=== PATIENT | male | born 1940 | race Caucasian/White ===

== ENCOUNTER → 2023-12-11 | Outpatient (CLI) | payer OTHER, SELFPAY ==
--- NOTE | 2023-12-11 | PROSBIL_PTH ---
PATHOLOGY RESULTS PATIENT: ANASTACIO ENGLAND LOC: [facility] U#:[id number] AGE/SX: 83/M ROOM: RE12/11/[address]: Dr. Drake Marvin MD : [id number] BED: DIS: 12/11/2023 SPEC #: [id number] RECD: 12/12/23 08:14 STATUS: JOSIANE NATA #: [id number] SUPRIYA: 12/11/23 00:[address]: Drake Marvin DEPT: SURGICAL PATHOLOGY RECD BY: Stefani De Santiago ENTERED: 12/12/23 08:15 SP TYPE: PROST BX Tissues: PROSTATE RIGHT PROSTATE RIGHT PROSTATE RIGHT PROSTATE LEFT PROSTATE LEFT PROSTATE LEFT Procedures: PROSTATE BX HEADER OPERATION: Prostate biopsy PRE-OP DIAGNOSIS: Elevated PSA TISSUE SUBMITTED: A - Right apex, B - Right mid, C - Right base, D - Left apex, E - Left mid, F - Left base MICROSCOPIC DIAGNOSIS A. Right prostate, apex, core biopsy: Prostatic adenocarcinoma. Cheikh grade: 3+5=8 Number of cores involved: 1/1 Proportion of tissue involved: almost 100% Perineural invasion: Not identified. Greatest tumor length: 0.9 cm Focal chronic inflammation. Focal high-grade prostatic intraepithelial neoplasia (HGPIN). See comment. B. Right prostate, mid, core biopsy: Prostatic adenocarcinoma. Cheikh grade: 4+3=7 Number of cores involved: 1/1 Proportion of tissue involved: >95% Perineural invasion: Not identified. Greatest tumor length: 0.9 cm Focal chronic inflammation. C. Right prostate, base, core biopsy: Prostatic adenocarcinoma. Cheikh grade: 4+3=7 Number of cores involved: 1/1 Proportion of tissue involved: >95% Perineural invasion: Not identified. Greatest tumor length: 1.2 cm Focal chronic inflammation. D. Left prostate, apex, core biopsy: Prostatic adenocarcinoma. Cheikh grade: 3+4=7 Number of cores involved: 1/1 Proportion of tissue involved: ~50% Perineural invasion: Not identified. Greatest tumor length: 0.5 cm Chronic inflammation and atrophy. E. Left prostate, mid, core biopsy: Prostatic adenocarcinoma. Robinson grade: 3+3=6 Number of cores involved: 1/1 Proportion of tissue involved: >95% Perineural invasion: Not identified. Greatest tumor length: 0.7 cm F. Left prostate, base, core biopsy: Prostatic adenocarcinoma. Robinson grade: 3+3=6 Number of cores involved: 1/1 Proportion of tissue involved: >95% Perineural invasion: Not identified. Greatest tumor length: 1.0 cm SJ:gage 12/13/2023 COMMENT A. Focal area also shows squamous epithelium. MICROSCOPIC DESCRIPTION Slides are reviewed. GROSS DESCRIPTION A - Received is one container designated prostate, right apex. The specimen consists of one elongated fragment of light bermudez-white soft tissue measuring 1.2 cm in length and 0.1 cm in diameter. The specimen is totally submitted in one cassette. B - Received is one container designated prostate, right mid. The specimen consists of one elongated fragment of light bermudez-white soft tissue measuring 1.5 cm in length and 0.1 cm in diameter. The specimen is totally submitted in one cassette. C - Received is one container designated prostate, right base. The specimen consists of one elongated fragment of light bermudez-white soft tissue measuring 1.5 cm in length and 0.1 cm in diameter. The specimen is totally submitted in one cassette. D - Received is one container designated prostate, left apex. The specimen consists of one elongated fragment of light bermudez-white soft tissue measuring 1.2 cm in length and 0.1 cm in diameter. The specimen is totally submitted in one cassette. E - Received is one container designated prostate, left mid. The specimen consists of one elongated fragment of light bermudez-white soft tissue measuring 1.1 cm in length and 0.1 cm in diameter. The specimen is totally submitted in one cassette. F - Received is one container designated prostate, left base. The specimen consists of one elongated fragment of light bermudez-white soft tissue measuring 1.4 cm in length and 0.1 cm in diameter. The specimen is totally submitted in one cassette. / JAKE:rg 12/12/2023 TC:0 CPT: G0146
== END | disposition home or self-care (01) ==
LOC: LABSPEC 16:52
PROVIDERS: Referring Provider Urology; Visit Provider Urology
DX: R97.20 Elevated prostate specific antigen [PSA] (principal)
CPT/HCPCS: 88305; G0416

== ENCOUNTER → 2023-12-25 | Outpatient (CLI) | payer SELFPAY, OTHER ==
--- NOTE | 2023-12-25 08:35 | NM_ITS ---
CLINICAL: 83-year-old male with history of primary prostate carcinoma. WHOLE BODY 99m Tc MDP RADIONUCLIDE BONE SCINTIGRAPHY COMPARISON: None available FINDINGS: Following the intravenous administration of 27.0 mCi of 99m Tc MDP, whole body bone images reveal: 1. Increased radiotracer uptake is identified in the acromioclavicular and sternoclavicular compartments of both shoulders, the left elbow, the dorsal medial compartments of the ankles bilaterally, multifocally apparent within the knee articulations bilaterally. 2. The remaining skeletal structures are scintigraphically unremarkable with normal-appearing renal images and urinary bladder activity identified. NM/Bone Scan Whole Body IMPRESSION: 1. The increase in radiopharmaceutical defined in the bilateral shoulders, left elbow, bilateral ankles and knee articulations is commensurate with degenerative arthrosis. 2. Overall there 1 is no definitive scintigraphic evidence of distant metastatic disease on the current examination. Electronically Signed: Ghassan Woods DO at 23:52 EST ,
--- OUTSIDE RECORDS SUMMARY | 2023-12-25 08:58 | XMS RPT_ITS | CCD ---
Author Name Unknown Address [address] [place] [address] Organization [facility] Care Team Providers Care Counter Person Name Role Phone REJI RIZO, SONALI Avery Unavailable BUCKRISSA BHAVDHRUV Unavailable Unavaila ble BERLIN Unavailable Unavailable Shavonne Draek Unavailable Unavailable PARAM RIZO, DANTE Jenkins Unavailable [phone] A RIZO, CUONG Street Unavailable Gabrielle CAGLE MD Unavailable VIVIENNE MENDOZA MD Unavailable Maribel VIRGEN MD Unavailable EMBER RIZO, VANDANA Sawyer Unavailable [phone] Kandy DANIEL, Gabrielle Unavailable Unavailable Ceasar RN, Neeru Unavailable Unavaila michelle Pickard RN, Ladi Unavailable Unavailable Barbie Palmer Unavailable Unavailable RANDY RN, FRANCK Unavailable Unavailable ÁNGEL DIAZ, AGNES Stovall Unavailable [phone] Unavailable Unavailable Gabrielle CAGLE Attending Unavailable Gabrielle CAGLE Primary Care Unavailable Gabrielle CAGLE Admitting Unavailable Gabrielle CAGLE Attending Unavailable Gabrielle CAGLE Primary Care Unavailable Gabrielle CAGLE Admitting Unavailable Medications Current Medications Medication Drug Class(es) Dates Sig (Normalized) Sig (Original) Richi Bray 500 mg capsule (oral) (8 sources) take 1 capsule by [facility] once daily Richi Bray 500 mg capsule (oral) ; 1 daily (500 mg) Comments: OTC Completed/Discontinued Medications Medication Drug Class(es) Dates Sig (Normalized) Sig (Original) acetaminophen 300 mg / codeine phosphate 30 mg oral tablet (8 sources) Opioid Agonist Start: 12-13-2015 End: 12-18-2015 take 1 tablet by mouth every four hours as needed for pain ACETAMINOPHEN-CODEI NE #3, 300-30MG (Oral Tablet) ; 1 (one) Tablet every 4 hours prn pain for 5 days Quantity: 15 {Tablet} Refills: 0 Ordered: 13-Dec-2015 MD Gabrielle CAGLE Start: 13-Dec-2015 End: 18-Dec-2015 Status: Inactive Comments: Do not exceed 3000 mg acetaminophen in all forms in 24 hours. Problems Active Problems Problem Classification Problem Date Documented Da te Episodic/Chronic Administrative/social admission (20 sources) Patient encounter status; Translations: [Counseling, unspecified] 01-05-2021 Episodic Anxiety disorders (16 sources) Anxiety; Translations: [Anxiety disorder, unspecified] 04-24-2022 Chronic Chronic kidney disease (16 sources) Chronic kidney disease stage 3B ; Translations: [Chronic kidney disease, Stage III (moderate)] 11-06-2023 Chronic Past or Other Problems Problem Classification Problem Date Documented Da te Episodic/Chronic Pneumonia (except that caused by tuberculosis or sexually transmitted disease) (8 sources) Pneumonia (except that caused by tuberculosis or sexually transmitted disease) 06-12-2012 Unclassified (8 sources) Urinary frequency - The onset of the urinary frequency has been sudden and has been occurring for 1 month. The course has been increasing. The symptoms have been associated with dysuria, nocturia and urinary urgency, while the symptoms have not been associated with flank pain, incontinence or suprapubic pain. 08-20-2023 Unclassified (4 sources) Follow-up after ER visit - The diagnosis of injury to face and constipation. The patient reports feeling feels well with minor complaints (rib pain). The ER visit was at [facility]. Date:04-17-22 and 04-22-22. 04-24-2022 Unclassified (4 sources) [ADDITIONAL REASON] Transition into care - The patient is transitioning into care from an emergency room ([facility]) and a summary of care was reviewed. Note for Transition into care : has cough and left rib pain. Headache at times. Sleeping in chair and has some edema in both ankles. 04-24-2022 Unclassified (2 sources) Insomnia - The last clinic visit was month(s) ago. Note for Insomnia : needs refill on trazodone. 02-22-2021 Unclassified (5 sources) [ADDITIONAL REASON] Benign Prostatic Hyperplasia - The last clinic visit was 1 month(s) ago. Symptoms include nocturia. Note for Benign prostatic hyperplasia : does not take Flomax regularly. Only gets up 2-3 times at night. 02-22-2021 Unclassified (5 sources) [ADDITIONAL REASON] Constipation - The course has been decreasing. Note for Constipation : constipation is much better. Using colacde and miralax as needed. 02-22-2021 Unclassified (8 sources) !Patient notification of lab results - EMILY Hua. The test(s) that you had done were/was a PSA (blood test for prostate cancer). Your tests were abnormal You should call our office to schedule a referral. Please follow up as scheduled. Note for !Patient notification of lab results : Since you are already taking 2 different things for your prostate and still having symptoms, I would suggest having you see a urologist. The prostate numbers were elevated and your symptoms can definitely be better. Let me know if you would like to be referred. There are urologists in [place], [place], and [place]. People get into them pretty quickly- most of my patients have liked the ones in [place] the best. Thanks, Anastacio and I hope the constipation has gotten better as well! 01-06-2021 Unclassified (8 sources) Constipation - Note for Constipation : See here in office 12/27/2020. Has been taking Miralax and Colace. Is eating Prunes and still is not passing much stool. Here for advice before leaving for [place] 01-05-2021 Unclassified (8 sources) Constipation - The onset of the constipation has been acute and has been occurring for weeks. Note for Constipation : had knee surgery in Sep and bowels worked well after that, but lately not working well. 12-27-2020 Unclassified (8 sources) !Patient notification of lab results - Dr. Cagle. The test(s) that you had done were/was blood work (Your kidney function was improved on today's labs. Please be sure you are drinking enough water every day). You should call our office if you have any questions. 10-26-2020 Unclassified (5 sources) [ADDITIONAL REASON] Insomnia - The last clinic visit was 2 month(s) ago. Symptoms include difficulty falling asleep. Onset was 3 week(s) ago. The symptoms occur nightly. Note for Insomnia : Had Left Knee replaced 3 weeks ago. Had to use the Bathroom Frequently and since then has had trouble falling asleep. 10-26-2020 Unclassified (8 sources) !Patient notification of lab results - Dr. Cagle. The test(s) that you had done were/was blood work (The white blood cell count was slightly low. These are cells that help fight infections. They were not so low that I am concerned that you will have a problem with infection, but the count should be repeated in 3 months to be certain that the count is stable.Your creatinine was slightly elevated which indicates that your kidney function isn't as good as in the past. I would like to have you see the kidney specialist before you proceed with your surgery. Please call our office to arrange this.). You should call our office if you have any questions. 08-25-2020 Unclassified (8 sources) Knee pain - The knee pain has been occurring for 1 year. The knee pain involves both knees. The knee pain is described as being located in the entire knee (above and below. Left is worse). The symptoms have been associated with painful ROM and decreased ROM. Note for Knee pain : Still working 3 days per week at [employer]. Here for exam. 12-03-2019 Unclassified (3 sources) Nocturia - Symptoms include increased nighttime voiding. Onset was month(s) ago. 06-27-2019 Unclassified (3 sources) [ADDITIONAL REASON] Leg pain - The onset of the leg pain has been acute and has been occurring in a persistent pattern for 2 days. The leg pain involves the left leg (lower). Note for Leg pain : had pain in right great toe area couple weeks ago. 06-27-2019 Unclassified (8 sources) !Patient notification of lab results - Dr. Mendoza. The test(s) that you had done were/was an iron level, an A1C (three month sugar average), a CBC (checks for anemia and infection), a CMP (kidneys, liver, nutrition, sugar), a lipid panel (cholesterol and triglycerides) and a TSH (thyroid). The results of your testing were normal (except for mildly elevated cholesterol) . You should call our office to schedule an appointment for additional testing (recommend an echocardiogram to check the strength of your heart). Please note that we have included copies of your results. 02-09-2019 Unclassified (8 sources) cough - The cough has been occurring for 2 days. The symptoms have been associated with headache and sore throat, while the symptoms have not been associated with fever or runny nose. Note for cough : Cough is non productive, also c/o aching. Here for exam. 11-25-2017 Unclassified (8 sources) Suture removal - The sutures were placed here. The date the sutures were placed was 12/13/15. The suture location is Left hand, 5th finger. Note for Suture removal : Here for exam. 12-28-2015 Unclassified (8 sources) LACERATION - Note for Laceration : L small finger. Pinched between sawzall and the base plate of the tool. Happened today. 12-13-2015 Unclassified (8 sources) sore throat - The onset of the sore throat has been acute and has been occurring in a persistent pattern for 5 days. The symptoms have been associated with cough and runny nose. 06-29-2015 Unclassified (8 sources) Anxiety - The anxiety has been occurring for years. Note for Anxiety : would like refill on hydroxyzine 25mg that he takes occasionally for anxiety. 07-26-2012 Unclassified (8 sources) cough - The cough has been occurring for 3 weeks. The cough is characterized as productive of purulent sputum. The symptoms have been associated with anorexia, chest pain, dyspnea, hoarseness, runny nose (yellow), sore throat and weight loss. 05-29-2012 Unclassified (4 sources) Transition into care - The patient is transitioning into care from an emergency room ([facility]) and a summary of care was reviewed. Note for Transition into care : has cough and left rib pain. Headache at times. Sleeping in chair and has some edema in both ankles. 04-24-2022 Unclassified (4 sources) [ADDITIONAL REASON] Follow-up after ER visit - The diagnosis of injury to face and constipation. The patient reports feeling feels well with minor complaints (rib pain). The ER visit was at [facility]. Date:04-17-22 and 04-22-22. 04-24-2022 Unclassified (3 sources) Benign Prostatic Hyperplasia - The last clinic visit was 1 month(s) ago. Symptoms include nocturia. Note for Benign prostatic hyperplasia : does not take Flomax regularly. Only gets up 2-3 times at night. 02-22-2021 Unclassified (6 sources) [ADDITIONAL REASON] Insomnia - The last clinic visit was month(s) ago. Note for Insomnia : needs refill on trazodone. 02-22-2021 Unclassified (3 sources) Constipation - The course has been decreasing. Note for Constipation : constipation is much better. Using colacde and miralax as needed. 02-22-2021 Unclassified (5 sources) Leg pain - The onset of the leg pain has been acute and has been occurring in a persistent pattern for 2 days. The leg pain involves the left leg (lower). Note for Leg pain : had pain in right great toe area couple weeks ago. 06-27-2019 Unclassified (5 sources) [ADDITIONAL REASON] Nocturia - Symptoms include increased nighttime voiding. Onset was month(s) ago. 06-27-2019 Unclassified (3 sources) Insomnia - The last clinic visit was 2 month(s) ago. Symptoms include difficulty falling asleep. Onset was 3 week(s) ago. The symptoms occur nightly. Note for Insomnia : Had Left Knee replaced 3 weeks ago. Had to use the Bathroom Frequently and since then has had trouble falling asleep. 10-26-2020 Viral infection (8 sources) Disease caused by 2019-nCoV 10-26-2020 Results Test Name Value Interpretation Reference Range Facil ity Vital Signs Date Time Vital Sign Value Performing Clinician Faci lity 11-06-2023 15:38-0500 Body height 172.72 cm Neeru Mcdonough RN [facility], [employer] [facility]. 11-06-2023 15:38-0500 Body mass index (BMI) [Ratio] 31.53 kg/m2 Neeru Mcdonough RN [facility] 11-06-2023 15:38-0500 Body surface area Derived from formula 2.08 m2 Neeru [facility]cd[facility].; [facility]. 11-06-2023 15:38-0500 Body weight 94.07 kg Neeru [facility]cdonough RN [facility].; [facility] 11-06-2023 15:38-0500 Diastolic blood pressure 82 mm[Hg] Neeru Mcdonough RN [facility].; [facility], [facility]. Encounters Encounter Date Encounter Type Care Provider Facility Start: 11-29-2023 End: 11-29-2023 Historical Summary SONALI MENDOZA MD Work Phone: [facility], [employer]. Start: 11-20-2023 End: 11-20-2023 ambulatory [facility] Start: 11-07-2023 End: 11-07-2023 ambulatory [facility] Start: 11-06-2023 End: 11-06-2023 Office outpatient visit 15 minutes SONALI MENDOZA MD Work Phone: [facility] Start: 08-20-2023 End: 08-20-2023 Office outpatient visit 10 minutes SONALI MENDOZA MD Work Phone: [facility] Start: 04-24-2022 End: 04-24-2022 Office outpatient visit 10 minutes SONALI MENDOZA MD Work Phone: [facility] Start: 02-22-2021 End: 02-22-2021 Office outpatient visit 15 minutes SONALI MENDOZA MD Work Phone: [facility]. Start: 01-06-2021 End: 01-06-2021 Follow-up encounter SONALI MENDOZA MD [facility]. Start: 01-05-2021 End: 01-05-2021 Office outpatient visit 10 minutes SONALI MENDOZA MD Work Phone: [employer] Start: 12-27-2020 End: 12-27-2020 Office outpatient visit 10 minutes SONALI MENDOZA MD Work Phone: [employer] [facility] [employer] Start: 10-26-2020 End: 10-26-2020 Results Review SONALI MENDOZA MD Work Phone: [facility] Start: 10-26-2020 End: 10-26-2020 Office outpatient visit 15 minutes SONALI MENDOZA MD Work Phone: [employer] [facility] [employer] Start: 08-25-2020 End: 08-25-2020 Results Review SONALI MENDOZA MD Work Phone: [email or web address] [employer] Start: 08-24-2020 End: 08-24-2020 Office outpatient visit 15 minutes SONALI MENDOZA MD Work Phone: [employer] [facility] [employer] Start: 08-24-2020 End: 08-24-2020 Preprocedural examination done SONALI MENDOZA MD Work Phone: [email or web address]; [employer] Start: 07-06-2020 End: 07-06-2020 Historical Summary SONALI MENDOZA MD Work Phone: [email or web address] [employer] Start: 12-03-2019 End: 12-03-2019 Office outpatient visit 15 minutes SONALI MENDOZA MD Work Phone: [employer] [facility] [employer] Start: 06-27-2019 End: 06-27-2019 Office outpatient visit 15 minutes SONALI MENDOZA MD Work Phone: [employer] [facility] [employer] Start: 06-27-2019 End: 06-27-2019 Physical examination SONALI MENDOZA MD Work Phone: [employer]; [employer] Start: 02-09-2019 End: 02-09-2019 Patient encounter procedure SONALI MENDOZA MD Work Phone: [employer] [email or web address]. Start: 02-08-2019 End: 02-08-2019 Lab Only SONALI MENDOZA MD Work Phone: [email or web address] [employer] Start: 02-08-2019 End: 02-08-2019 Office outpatient visit 15 minutes SONALI MENDOZA MD Work Phone: [employer] [facility] [employer] Start: 11-20-2017 End: 11-25-2017 Office outpatient visit 15 minutes SONALI MENDOZA MD Work Phone: [employer] Start: 03-30-2017 End: 03-30-2017 Office outpatient visit 10 minutes SONALI MENDOZA MD Work Phone: [employer] Start: 08-23-2016 End: 08-23-2016 Historical Summary SONALI MENDOZA MD Work Phone: [employer] [facility] [employer] Start: 08-15-2016 End: 08-16-2016 Office outpatient visit 15 minutes SONALI MENDOZA MD Work Phone: [employer] Start: 07-27-2016 End: 07-27-2016 Historical Summary SONALI MENDOZA MD Work Phone: [employer] Start: 12-28-2015 End: 12-28-2015 Admission to same day surgery center SONALI MENDOZA MD Work Phone: [employer]. Start: 12-13-2015 End: 12-13-2015 Medication Refill/Order SONALI MENDOZA MD Work Phone: [employer] [email or web address]. Start: 12-13-2015 End: 12-13-2015 Admission to same day surgery center SONALI MENDOZA MD Work Phone: [employer] Start: 06-29-2015 End: 06-29-2015 Office outpatient visit 15 minutes SONALI MENDOZA MD Work Phone: [employer] Start: 03-25-2013 End: 03-25-2013 Historical Summary SONALI MENDOZA MD Work Phone: [employer] Start: 07-26-2012 End: 07-26-2012 Patient encounter procedure SONALI MENDOZA MD Work Phone: [employer] Start: 06-12-2012 End: 06-12-2012 Patient encounter procedure SONALI MENDOZA MD Work Phone: [employer] Start: 05-29-2012 End: 05-29-2012 Patient encounter procedure SONALI MENDOZA MD Work Phone: [employer] Start: 04-05-2012 End: 04-05-2012 Historical Summary SONALI MENDOZA MD Work Phone: [address] Start: 12-13-2010 End: 12-13-2010 Historical Summary SONALI MENDOZA MD Work Phone: [address] Procedures Date Procedure Procedure Detail Performing Clinician Start: 11-08-2023 PSA screening ELSA ROQUE Plan of Treatment Date Care Activity Detail Author Start: 11-06-2023 Comprehensive metabolic panel CMP - COMPREHENSIVE METABOLIC PANEL (10076) Start: 06-Nov-2023 16:43 Request [employer]. Start: 11-06-2023 Blood count complete auto&auto difrntl wbc CBC, PLATELETS & AUT DIFF (35926) Start: 06-Nov-2023 16:43 Request [employer] Start: 11-06-2023 Assay of prostate specific antigen total PSA (PROSTATE SPECIFIC ANTIGEN) (60697) Start: 06-Nov-2023 16:43 Request [employer] [facility] [employer] Start: 11-06-2023 Culture bacterial quanttative colony count urine URINE MELISSA CULTURE-LEONIDAS COL COUNT ([id number]) Start: 06-Nov-2023 16:42 Request [employer] [facility] [employer] Start: 11-06-2023 Culture bct isol&prsmptv id isolate ea urine URINE MELISSA CULTURE-ID ([id number]) Start: 06-Nov-2023 16:42 Request [employer] [facility] [employer] Start: 11-06-2023 Us pelvic nonobstetric image dcmtn limited/f/u US BLADDER FOR RESIDUAL ([id number]) Start: 06-Nov-2023 Intent [employer] [facility] [employer], [employer]. Start: 11-06-2023 Us retroperitoneal real time w/image complete US KIDNEY, COMP (64606) : bilateral with ureters Start: 06-Nov-2023 Intent [employer] [facility] [employer], [employer]. Start: 02-22-2021 Patient Education Labyrinthitis Indication: BPPV (benign paroxysmal positional vertigo), bilateral Start: 22-Feb-2021 Instruction Type: Patient Education [employer] [facility] [employer]. Start: 02-08-2019 Patient Education [employer] [facility] [employer]. Start: 12-13-2015 Finger splint, static FINGER SPLINT, STATIC (Q4049) Start: 13-Dec-2015 Intent [employer] [facility] [employer], [employer]. Start: 12-13-2015 Simple repair scalp/neck/ax/genit/trunk 2.5cm/< NON FACE UP TO 2.5 CM TOTAL ([id number]) Start: 13-Dec-2015 Intent [employer] [facility] [employer], [employer]. Start: 06-29-2015 Patient Education Pneumonia *: bacterial pneumonia Indication: Pneumonia of left lower lobe due to infectious organism Start: 29-Jun-2015 Instruction Type: Patient Education [employer]; [facility] [employer]. Start: 06-29-2015 [employer] streptococcus group a RAPID STREP IN OFFICE ([id number]) Start: 29-Jun-2015 11:15 Request [employer] [facility] [employer] [facility]. Start: 07-26-2012 Patient Education ANXIETY Indication: ANXIETY/NERVOUSNESS (Renamed from Jittery) Start: 26-Jul-2012 Instruction Type: Patient Education [employer] [facility] [employer]. Work Phone: Start: 05-29-2012 Patient Education BRONCHITIS - PNEUMONIA INSTRUCTIONS Indication: PNEUMONIA (486.) (Renamed from PNA (pneumonia)) Start: 29-May-2012 Instruction Type: Patient Education [facility] [employer] [facility] [employer]. Immunizations Immunization Date Immunization Notes Care Provider Kimberly tatum 12-13-2015 *IMMUNIZATION ADMIN ([id number]) SONALI MENDOZA MD Work Phone: [facility] [employer]; [facility] [employer] 12-13-2015 tetanus toxoid, redu chandrakant diphtheria toxoid, and acellular pertussis vaccine, adsorbed SONALI MENDOZA MD Work Phone: [facility] [employer]; [facility] [employer] [facility] Payers Date Payer Category Payer Unknown [id number] Unknown Unknown 37 Social History Date Type Detail Facility Alcohol Use: Alcohol Use: ; N o Alcohol Use. [employer]; [facility] [employer] [facility] [employer] Current Work/Study Status Current Work/St udy Status [facility] [employer]; [facility] [employer] [facility] Marital status: Marital status: ; . [email or web address]; [facility] [employer] [facility] [employer] Tobacco use: Tobacco use: ; F ormer smoker. [facility].; [facility]. [facility]; [facility] Work Phone: Never smoked tobacco [facility]; [facility]. Work Phone: [facility]; [facility]. Work Phone: Ex-smoker [facility]; [facility] [employer] [facility] [employer]. Work Phone: [facility]; [facility]. Work Phone: Summary Purpose Family History Daughter (s) Status:Active Comments:2. Father Status:Active Comments: d. age 59 [place] Mother Status:Active Comments: d. age 77 DM2 Sister (s) Status:Active Comments:4. all 1 stroke, 1 CKD Son (s) Status:Active Comments:3. age 71 , colon CA (2017) 5 children Status:Active Daughter (s) Status:Active Comments:2. Father Status:Active Comments: d. age 59 [place] Mother Status:Active Comments: d. age 77 DM2 Sister (s) Status:Active Comments:4. all 1 stroke, 1 CKD Son (s) Status:Active Comments:3. age 71 , colon CA (2017) 5 children Status:Active Daughter (s) Status:Active Comments:2. Father Status:Active Comments: d. age 59 [place] Mother Status:Active Comments: d. age 77 DM2 Sister (s) Status:Active Comments:4. all 1 stroke, 1 CKD Son (s) Status:Active Comments:3. age 71 , colon CA (2017) 5 children Status:Active Daughter (s) Status:Active Comments:2. Father Status:Active Comments: d. age 59 [place] Mother Status:Active Comments: d. age 77 DM2 Sister (s) Status:Active Comments:4. all 1 stroke, 1 CKD Son (s) Status:Active Comments:3. age 71 , colon CA (2017) 5 children Status:Active Daughter (s) Status:Active Comments:2. Father Status:Active Comments: d. age 59 [place] Mother Status:Active Comments: d. age 77 DM2 Sister (s) Status:Active Comments:4. all 1 stroke, 1 CKD Son (s) Status:Active Comments:3. age 71 , colon CA (2017) 5 children Status:Active Daughter (s) Status:Active Comments:2. Father Status:Active Comments: d. age 59 [place] Mother Status:Active Comments: d. age 77 DM2 Sister (s) Status:Active Comments:4. all 1 stroke, 1 CKD Son (s) Status:Active Comments:3. age 71 , colon CA (2017) 5 children Status:Active Daughter (s) Status:Active Comments:2. Father Status:Active Comments: d. age 59 [place] Mother Status:Active Comments: d. age 77 DM2 Sister (s) Status:Active Comments:4. all 1 stroke, 1 CKD Son (s) Status:Active Comments:3. age 71 , colon CA (2017) 5 children Status:Active Daughter (s) Status:Active Comments:2. Father Status:Active Comments: d. age 59 [place] Mother Status:Active Comments: d. age 77 DM2 Sister (s) Status:Active Comments:4. all 1 stroke, 1 CKD Son (s) Status:Active Comments:3. age 71 , colon CA (2017) 5 children Status:Active Advance Directives No Advanced Directives Records FoundNo Advanced Directives Records Found Additional Source Comments (unrecognized sect ion and content) No Status Records FoundNo Status Records Found INFORMATION SOURCE (unrecogn ized section and content) DATE CREATED AUTHOR AUTHOR'S ORGANROBIN ATION 11/22/2023 [facility] FOR RECORDS PERTAINING TO PATIENTS WHO ARE OR HAVE BEEN ENROLLED IN A CHEMICAL DEPENDENCY/SUBSTANCEABUSE PROGRAM, SOME INFORMATION MAY BE OMITTED. This clinical summary was aggregated from multiple sources. Caution should be exercised in using it in the provision of clinical care. This summary normalizes information from multiple sources, and as a consequence, information in this document may materially change the coding, format and clinical context of patient data. In addition, data may be omitted in some cases. CLINICAL DECISIONS SHOULD BE BASED ON THE PRIMARY CLINICAL RECORDS. [facility]. provides no warranty or guarantee of the accuracy or completeness of information in this document.
== END | disposition home or self-care (01) ==
LOC: NM 08:35
PROVIDERS: PCP Family Medicine; Referring Provider Urology; Visit Provider Urology
DX: C61 Malignant neoplasm of prostate (principal)
CPT/HCPCS: 78306; A9503

== ENCOUNTER → 2023-12-31 | Outpatient (CLI) | payer SELFPAY, OTHER ==
--- NOTE | 2023-12-31 08:08 | CT_ITS ---
STUDY: CT ABDOMEN AND PELVIS WITH CONTRAST REASON FOR EXAM: Male, 83 years old. PROSTATE CA RADIATION DOSAGE (If Supplied By Facility): CTDIvol = ( 17.27 ) mGy, DLP = ( 1134.10 ) mGycm TECHNIQUE: IV 100mL Isovue-370 was administered. Transaxial images were obtained from the dome of the diaphragm to the symphysis pubis. Multiplanar coronal and sagittal images were reformatted. Individualized Dose Optimization Techniques Were Used For This CT. COMPARISON: No relevant prior comparison study available FINDINGS: The visualized lung bases are essentially unremarkable. The visualized portions of the heart are within normal limits. Calcifications near the lower edge of the liver. No focal lesion is seen in the liver. Normal gallbladder and extrahepatic biliary system. Normal spleen. Normal pancreas. Normal bilateral adrenal glands. 1 cm simple cyst in the upper pole of the left kidney for which no further follow-up exam is needed. Mild atrophic changes in the right kidney. No evidence of hydronephrosis. Small hiatal hernia. Normal in caliber small bowel loops. Normal in caliber small bowel loops. Fecal retention. No evidence of acute diverticulitis. The appendix is visualized and appears normal. There is diffuse atherosclerotic calcification of the abdominal aorta with elongation and tortuosity, but without a demonstrated aneurysm. No retroperitoneal adenopathy. Mild circumferential thickening of the bladder wall likely due to underdistention. Enlarged prostate with calcifications. Very small umbilical hernia containing fat. Nonspecific small sclerotic lesion in the right femoral head could be due to bone island. Mild compression fracture of T11 vertebra could be chronic. Schmorl''s nodes at multiple levels. Otherwise no evidence of osteoblastic or lytic lesions. CT/Abdomen/Pelvis W IV Cont ONLY IMPRESSION: 1. Nonspecific small sclerotic lesion in the left femoral head likely due to bone island however due to history of prostatic cancer, metastases cannot be entirely excluded. Otherwise no evidence of metastatic disease. 2. No focal acute inflammatory process. Electronically Signed: Allen Gonzalez MD at 10:58 EST ,
--- OUTSIDE RECORDS SUMMARY | 2023-12-31 08:38 | XMS RPT_ITS | CCD ---
Author Name Unknown Address [address] [place] [address] Organization [facility] Care Team Providers Care Showroom Salesperson Name Role Phone REJI RIZO, SONALI Avery Unavailable BUCKRISSA BHAVDHRUV Unavailable Unavaila ble BERLIN Unavailable Unavailable Shavonne Drake Unavailable Unavailable PARAM RIZO, DANTE Jenkins Unavailable CARLOS A RIZO, CUONG Street Unavailable Gabrielle CAGLE MD Unavailable VIVIENNE MENDOZA MD Unavailable Maribel VIRGEN MD Unavailable EMBER RIZO, VANDANA Sawyer Unavailable [phone] Kandy DANIEL, Gabrielle Unavailable Unavailable Ceasar RN, Neeru Unavailable Unavaila michelle Pickard RN, Ladi Unavailable Unavailable Barbie Palmer Unavailable Unavailable RANDY RN, FRANCK Unavailable Unavailable ÁNGEL DIAZ, AGNES Stovall Unavailable [phone] Unavailable Unavailable Gabrielle CAGLE Attending Unavailable Gabrielle CAGLE Primary Care Unavailable Gabrielle CAGLE Admitting Unavailable Gabrielle CAGLE Attending Unavailable Gabrielle CAGLE Primary Care Unavailable Gabrielle CAGLE Admitting Unavailable Medications Current Medications Medication Drug Class(es) Dates Sig (Normalized) Sig (Original) Richi Bray 500 mg capsule (oral) (9 sources) take 1 capsule by [facility] once daily Richi Bray 500 mg capsule (oral) ; 1 daily (500 mg) Comments: OTC Completed/Discontinued Medications Medication Drug Class(es) Dates Sig (Normalized) Sig (Original) acetaminophen 300 mg / codeine phosphate 30 mg oral tablet (9 sources) Opioid Agonist Start: 12-13-2015 End: 12-18-2015 [...] Translations: [Counseling, unspecified] 01-05-2021 Episodic Anxiety disorders (18 sources) Anxiety; Translations: [Anxiety disorder, unspecified] 04-24-2022 Chronic Chronic kidney disease (18 sources) Chronic kidney disease stage 3B ; Translations: [Chronic kidney disease, Stage III (moderate)] 11-06-2023 Chronic Past or Other Problems Problem Classification Problem Date Documented Da te Episodic/Chronic Pneumonia (except that caused by tuberculosis or sexually transmitted disease) (9 sources) Pneumonia (except that caused by tuberculosis or sexually transmitted disease) 06-12-2012 Unclassified (9 sources) Urinary frequency - The onset of the urinary frequency has been sudden and has been occurring for 1 month. The course has been increasing. The symptoms have been associated with dysuria, nocturia and urinary urgency, while the symptoms have not been associated with flank pain, incontinence or suprapubic pain. 08-20-2023 Unclassified (5 sources) Follow-up after ER visit - The diagnosis of injury to face and constipation. The patient reports feeling feels well with minor complaints (rib pain). The ER visit was at [facility]. Date:04-17-22 and 04-22-22. 04-24-2022 Unclassified (5 sources) [ADDITIONAL REASON] Transition into care - The patient is transitioning into care from an emergency room ([place]) and a summary of care was reviewed. Note for Transition into care : has cough and left rib pain. Headache at times. Sleeping in chair and has some edema in both ankles. 04-24-2022 Unclassified (2 sources) Insomnia - The last clinic visit was month(s) ago. Note for Insomnia : needs refill on trazodone. 02-22-2021 Unclassified (6 sources) [ADDITIONAL REASON] Benign Prostatic Hyperplasia - [...] colacde and miralax as needed. 02-22-2021 Unclassified (9 sources) !Patient notification of lab results - [...] to be referred. There are urologists in [place], [place], and [place]. People get into them pretty quickly- most of my patients have liked the ones in [place] the best. Thanks, Anastacio and I hope the constipation has gotten better as well! 01-06-2021 Unclassified (9 sources) Constipation - Note for Constipation : See here in office 12/27/2020. Has been taking Miralax and Colace. Is eating Prunes and still is not passing much stool. Here for advice before leaving for [place] 01-05-2021 Unclassified (9 sources) Constipation - The onset of the constipation has been acute and has been occurring for weeks. Note for Constipation : had knee surgery in Sep and bowels worked well after that, but lately not working well. 12-27-2020 Unclassified (9 sources) !Patient notification of lab results - [...] has had trouble falling asleep. 10-26-2020 Unclassified (9 sources) !Patient notification of lab results - [...] if you have any questions. 08-25-2020 Unclassified (9 sources) Knee pain - The knee pain has been occurring for 1 year. The knee pain involves both knees. The knee pain is described as being located in the entire knee (above and below. Left is worse). The symptoms have been associated with painful ROM and decreased ROM. Note for Knee pain : Still working 3 days per week at [employer]. Here for exam. 12-03-2019 Unclassified [...] toe area couple weeks ago. 06-27-2019 Unclassified (9 sources) !Patient notification of lab results - [...] included copies of your results. 02-09-2019 Unclassified (9 sources) cough - The cough has been occurring for 2 days. The symptoms have been associated with headache and sore throat, while the symptoms have not been associated with fever or runny nose. Note for cough : Cough is non productive, also c/o aching. Here for exam. 11-25-2017 Unclassified (9 sources) Suture removal - The sutures were placed here. The date the sutures were placed was 12/13/15. The suture location is Left hand, 5th finger. Note for Suture removal : Here for exam. 12-28-2015 Unclassified (9 sources) LACERATION - Note for Laceration : L small finger. Pinched between sawzall and the base plate of the tool. Happened today. 12-13-2015 Unclassified (9 sources) sore throat - The onset of the sore throat has been acute and has been occurring in a persistent pattern for 5 days. The symptoms have been associated with cough and runny nose. 06-29-2015 Unclassified (9 sources) Anxiety - The anxiety has been occurring for years. Note for Anxiety : would like refill on hydroxyzine 25mg that he takes occasionally for anxiety. 07-26-2012 Unclassified (9 sources) cough - The cough has been occurring for 3 weeks. The cough is characterized as productive of purulent sputum. The symptoms have been associated with anorexia, chest pain, dyspnea, hoarseness, runny nose (yellow), sore throat and weight loss. 05-29-2012 Unclassified (4 sources) Transition into care - The patient is transitioning into care from an emergency room ([place]) and a summary of care was reviewed. [...] (rib pain). The ER visit was at [facility]. Date:04-17-22 and 04-22-22. 04-24-2022 Unclassified (3 sources) Benign Prostatic Hyperplasia - The last clinic visit was 1 month(s) ago. Symptoms include nocturia. Note for Benign prostatic hyperplasia : does not take Flomax regularly. Only gets up 2-3 times at night. 02-22-2021 Unclassified (7 sources) [ADDITIONAL REASON] Insomnia - The last clinic visit was month(s) ago. Note for Insomnia : needs refill on trazodone. 02-22-2021 Unclassified (4 sources) Constipation - The course has been decreasing. Note for Constipation : constipation is much better. Using colacde and miralax as needed. 02-22-2021 Unclassified (6 sources) Leg pain - The onset of the leg pain has been acute and has been occurring in a persistent pattern for 2 days. The leg pain involves the left leg (lower). Note for Leg pain : had pain in right great toe area couple weeks ago. 06-27-2019 Unclassified (6 sources) [ADDITIONAL REASON] Nocturia - Symptoms include increased nighttime voiding. Onset was month(s) ago. 06-27-2019 Unclassified (4 sources) Insomnia - The last clinic visit was 2 month(s) ago. Symptoms include difficulty falling asleep. Onset was 3 week(s) ago. The symptoms occur nightly. Note for Insomnia : Had Left Knee replaced 3 weeks ago. Had to use the Bathroom Frequently and since then has had trouble falling asleep. 10-26-2020 Viral infection (9 sources) Disease caused by 2019-nCoV 10-26-2020 Results Test Name Value Interpretation Reference Range Facil ity Vital Signs Date Time Vital Sign Value Performing Clinician Faci lity 11-06-2023 15:38-0500 Body height 172.72 cm Neeru Mcdonough RN [facility], [employer].; [facility], [facility]. 11-06-2023 15:38-0500 Body mass index (BMI) [Ratio] 31.53 kg/m2 Neeru Mcdonough RN [facility] 11-06-2023 15:38-0500 Body surface area Derived from formula 2.08 m2 Neeru [facility]cdonough [facility].; [facility], [facility]. 11-06-2023 15:38-0500 Body weight 94.07 kg Neeru [facility]cdonough RN [facility].; [facility] 11-06-2023 15:38-0500 Diastolic blood pressure 82 mm[Hg] Neeru [facility]cdonough [facility], [facility]. Encounters Encounter Date Encounter Type Care Provider Facility Start: 11-29-2023 End: 11-29-2023 Historical Summary SONALI MENDOZA MD Work Phone: [facility], [employer]. Start: 11-20-2023 End: 11-20-2023 ambulatory [facility] Start: 11-07-2023 End: 11-07-2023 ambulatory [facility] Start: 11-06-2023 End: 11-06-2023 Office outpatient visit 15 minutes SONALI MENDOZA MD Work Phone: [facility] Start: 08-20-2023 End: 08-20-2023 Office outpatient visit 10 minutes SONALI MENDOZA MD Work Phone: [facility] Start: 04-24-2022 End: 04-24-2022 Office outpatient visit 10 minutes SONALI MENDOZA MD [facility] Start: 02-22-2021 End: 02-22-2021 Office outpatient visit 15 minutes SONALI MENDOZA MD [facility] Start: 01-06-2021 End: 01-06-2021 Follow-up encounter [facility] Start: 01-05-2021 End: 01-05-2021 Office outpatient visit 10 minutes SONALI MENDOZA MD Work Phone: [employer] Start: 12-27-2020 End: 12-27-2020 Office outpatient visit 10 minutes SONALI MENDOZA MD Work Phone: [employer] [facility] Start: 10-26-2020 End: 10-26-2020 Results Review SONALI MENDOZA MD Work Phone: [place] [employer] [facility] Start: 10-26-2020 End: 10-26-2020 Office outpatient visit 15 minutes SONALI MENDOZA MD Work Phone: [employer] [facility] Start: 08-25-2020 End: 08-25-2020 Results Review SONALI MENDOZA MD [facility]: [facility] Start: 08-24-2020 End: 08-24-2020 Office outpatient visit 15 minutes SONALI MENDOZA MD Work Phone: [employer] [facility] Start: 08-24-2020 End: 08-24-2020 Preprocedural examination done SONALI MENDOZA MD Work Phone: [employer]; [employer] Start: 07-06-2020 End: 07-06-2020 Historical Summary SONALI MENDOZA MD [facility] [employer] [facility] Start: 12-03-2019 End: 12-03-2019 Office outpatient visit 15 minutes SONALI MENDOZA MD Work Phone: [employer] [facility] Start: 06-27-2019 End: 06-27-2019 Office outpatient visit 15 minutes SONALI MENDOZA MD Work Phone: [employer] [facility] Start: 06-27-2019 End: 06-27-2019 Physical examination SONALI MENDOZA MD Work Phone: [employer]; [employer] Start: 02-09-2019 End: 02-09-2019 Patient encounter procedure SONALI MENDOZA MD Work Phone: [employer] [facility]. Start: 02-08-2019 End: 02-08-2019 Lab Only SONALI MENDOZA MD Work Phone: [facility] Start: 02-08-2019 End: 02-08-2019 Office outpatient visit 15 minutes SONALI MENDOZA MD Work Phone: [employer] Start: 11-20-2017 End: 11-25-2017 Office outpatient visit 15 minutes SONALI MENDOZA MD Work Phone: [employer] Start: 03-30-2017 End: 03-30-2017 Office outpatient visit 10 minutes SONALI MENDOZA MD Work Phone: [employer] Start: 08-23-2016 End: 08-23-2016 Historical Summary SONALI MENDOZA MD Work Phone: [employer] [place] Start: 08-15-2016 End: 08-16-2016 Office outpatient visit 15 minutes SONALI MENDOZA MD Work Phone: [employer] Start: 07-27-2016 End: 07-27-2016 Historical Summary SONALI MENDOZA MD Work Phone: [employer] Start: 12-28-2015 End: 12-28-2015 Admission to same day surgery center SONALI MENDOZA MD Work Phone: [employer]. Start: 12-13-2015 End: 12-13-2015 Medication Refill/Order SONALI MENDOZA MD Work Phone: [employer] [facility]. Start: 12-13-2015 End: 12-13-2015 Admission to same day surgery center SONALI MENDOZA MD Work Phone: [employer] Start: 06-29-2015 End: 06-29-2015 Office outpatient visit 15 minutes SONALI MENDOZA MD Work Phone: [employer] Start: 03-25-2013 End: 03-25-2013 Historical Summary SONALI MENDOZA MD Work Phone: [employer] Start: 07-26-2012 End: 07-26-2012 Patient encounter procedure SONALI MENDOZA MD Work Phone: [employer] Start: 06-12-2012 End: 06-12-2012 Patient encounter procedure SONALI MENDOZA MD Work Phone: [employer] Start: 05-29-2012 End: 05-29-2012 Patient encounter procedure SONALI MENDOZA MD Work Phone: [employer] Start: 04-05-2012 End: 04-05-2012 Historical Summary SONALI MENDOZA MD Work Phone: [employer] Start: 12-13-2010 End: 12-13-2010 Historical Summary SONALI MENDOZA MD Work Phone: [employer] Procedures Date Procedure Procedure Detail Performing Clinician Start: 11-08-2023 PSA screening ELSA ROQUE Plan of Treatment Date Care Activity Detail Author Start: 11-06-2023 Comprehensive metabolic panel CMP - COMPREHENSIVE METABOLIC PANEL (62176) Start: 06-Nov-2023 16:43 Request [email or web address]. Start: 11-06-2023 Blood count complete auto&auto difrntl wbc CBC, PLATELETS & AUT DIFF ([id number]) Start: 06-Nov-2023 16:43 Request [employer] Start: 11-06-2023 Assay of prostate specific antigen total PSA (PROSTATE SPECIFIC ANTIGEN) ([id number]) Start: 06-Nov-2023 16:43 Request [facility] [employer] [facility] [employer] [facility] Start: 11-06-2023 Culture bacterial quanttative colony count urine URINE MELISSA CULTURE-LEONIDAS COL COUNT ([id number]) Start: 06-Nov-2023 16:42 Request [facility] [employer].; [facility] [employer] [facility] Start: 11-06-2023 Culture bct isol&prsmptv id isolate ea urine [facility] [employer].; [employer] [facility] [employer] Inc[employer] Start: 11-06-2023 Us pelvic nonobstetric image dcmtn limited/f/u US BLADDER FOR RESIDUAL ([id number]) Start: 06-Nov-2023 Intent [facility] [employer] [facility] [employer] Inc[employer] Start: 11-06-2023 Us retroperitoneal real time w/image complete US KIDNEY, COMP ([id number]) : bilateral with ureters Start: 06-Nov-2023 [facility] [employer] [facility] [employer], [employer]. Start: 02-22-2021 Patient Education Labyrinthitis Indication: BPPV (benign paroxysmal positional vertigo), bilateral Start: 22-Feb-2021 Instruction Type: Patient Education [facility] [employer].; [employer] [facility] [employer] Start: 02-08-2019 Patient Education [facility] [employer].; [facility]. Start: 12-13-2015 Finger splint, static FINGER SPLINT, STATIC (Q4049) Start: 13-Dec-2015 [facility] [employer] [facility] [employer]. Start: 12-13-2015 Simple repair scalp/neck/ax/genit/trunk 2.5cm/< NON FACE UP TO 2.5 CM TOTAL ([id number]) Start: 13-Dec-2015 [facility] [employer].; [employer] [facility] [employer], Inc. Start: 06-29-2015 Patient Education Pneumonia *: bacterial pneumonia Indication: Pneumonia of left lower lobe due to infectious organism Start: 29-Jun-2015 Instruction Type: Patient Education [facility] [employer] [facility]; [facility] Start: 06-29-2015 [employer] streptococcus group a [facility]; [facility] Start: 07-26-2012 Patient Education ANXIETY Indication: ANXIETY/NERVOUSNESS (Renamed from Jittery) Start: 26-Jul-2012 Instruction Type: Patient Education [facility] [employer] [facility].; [facility]. Work Phone: Start: 05-29-2012 Patient Education BRONCHITIS - PNEUMONIA INSTRUCTIONS Indication: PNEUMONIA (486.) (Renamed from PNA (pneumonia)) Start: 29-May-2012 Instruction Type: Patient Education [facility] [employer] [facility]; [facility] Immunizations Immunization Date Immunization Notes Care Provider Kimberly tatum 12-13-2015 *IMMUNIZATION ADMIN ([id number]) SONALI MENDOZA MD Work Phone: [facility] [employer] [facility]; [facility] 12-13-2015 tetanus toxoid, redu chandrakant diphtheria toxoid, and acellular pertussis vaccine, adsorbed SONALI MENDOZA MD Work Phone: [facility]; [facility] Payers Date Payer Category Payer Unknown [id number] Unknown Unknown 37 Social History Date Type Detail Facility Alcohol Use: Alcohol Use: ; N o Alcohol Use. [facility] [employer] [facility]; [facility] Current Work/Study Status Current Work/St udy Status [facility] [employer] [facility]; [facility] Marital status: Marital status: ; . [facility] [employer] [facility]; [facility] Tobacco use: Tobacco use: ; F ormer smoker. [facility] [employer] [facility].; [facility] [employer] [facility] Male [facility]; [facility] [employer] [facility]. Work Phone: Never smoked tobacco [facility].; [facility] Work Phone: [facility]; [facility] Work Phone: Ex-smoker [facility]; [facility]. Work Phone: [facility]; [facility] Work Phone: Summary Purpose Family History Daughter (s) Status:Active Comments:2. Father Status:Active Comments: d. age 59 [place] Mother Status:Active Comments: d. age 77 DM2 Sister (s) Status:Active Comments:4. all 1 stroke, 1 CKD Son (s) Status:Active Comments:3. age 71 , colon CA (2017) 5 children Status:Active Daughter (s) Status:Active Comments:2. Father Status:Active Comments: d. age 59 [place] Mother Status:Active Comments: d. age 77 DM2 Sister (s) Status:Active Comments:4. all 1 stroke, 1 CKD Son (s) Status:Active Comments:3. age 71 , colon CA (2017) 5 children Status:Active Daughter (s) Status:Active Comments:2. Father Status:Active Comments: d. age 59 [place] Mother Status:Active Comments: d. age 77 DM2 Sister (s) Status:Active Comments:4. all 1 stroke, 1 CKD Son (s) Status:Active Comments:3. age 71 , colon CA (2017) 5 children Status:Active Daughter (s) Status:Active Comments:2. Father Status:Active Comments: d. age 59 [place] Mother Status:Active Comments: d. age 77 DM2 Sister (s) Status:Active Comments:4. all 1 stroke, 1 CKD Son (s) Status:Active Comments:3. age 71 , colon CA (2017) 5 children Status:Active Daughter (s) Status:Active Comments:2. Father Status:Active Comments: d. age 59 [place] Mother Status:Active Comments: d. age 77 DM2 Sister (s) Status:Active Comments:4. all 1 stroke, 1 CKD Son (s) Status:Active Comments:3. age 71 , colon CA (2017) 5 children Status:Active Daughter (s) Status:Active Comments:2. Father Status:Active Comments: d. age 59 [place] Mother Status:Active Comments: d. age 77 DM2 Sister (s) Status:Active Comments:4. all 1 stroke, 1 CKD Son (s) Status:Active Comments:3. age 71 , colon CA (2017) 5 children Status:Active Daughter (s) Status:Active Comments:2. Father Status:Active Comments: d. age 59 [place] Mother Status:Active Comments: d. age 77 DM2 Sister (s) Status:Active Comments:4. all 1 stroke, 1 CKD Son (s) Status:Active Comments:3. age 71 , colon CA (2017) 5 children Status:Active Daughter (s) Status:Active Comments:2. Father Status:Active Comments: d. age 59 [place] Mother Status:Active Comments: d. age 77 DM2 Sister (s) Status:Active Comments:4. all 1 stroke, 1 CKD Son (s) Status:Active Comments:3. age 71 , colon CA (2017) 5 children Status:Active Daughter (s) Status:Active Comments:2. Father Status:Active Comments: d. age 59 [place] Mother Status:Active Comments: d. age 77 DM2 [...] section and content) DATE CREATED AUTHOR AUTHOR'S ROSEMARIE ATION 11/22/2023 [facility] FOR RECORDS PERTAINING TO PATIENTS WHO ARE [...] BE BASED ON THE PRIMARY CLINICAL RECORDS. [facility] [employer] [facility]. provides no warranty or guarantee of the accuracy or completeness of information in this document.
[2023-12-31 08:39] LABS: CREATININE FINGERSTICK 1.2 mg/dL (0.70-1.30)
== END | disposition home or self-care (01) ==
PROVIDERS: PCP Family Medicine; Referring Provider Urology; Visit Provider Urology
DX: C61 Malignant neoplasm of prostate (principal)
CPT/HCPCS: 74177; Q9967

== ENCOUNTER → 2024-05-13 | Outpatient (CLI) | payer SELFPAY, OTHER ==
--- NOTE | 2024-05-13 11:00 | PET_ITS ---
EXAMINATION: PSMA-Pylarify PET-CT INDICATIONS: A 83 -year-old male with history of prostate carcinoma presenting for restaging examination. COMPARISON: CT of the abdomen-pelvis report dated 12/31/23, bone scintigraphy report dated 12/25/23. INDEX LESION SIZE SUV PROMISE SCORE INTERPRETATION Prostate gland 13.8 mm 12.93 2 Fulfills quantitative criteria for viable neoplasm. Right hemipelvis n=2 5.78 max 1 Quantitative criteria for viable neoplasm are not fulfilled. TECHNIQUE: Following the intravenous administration of 8,95 mCi of PSMA-Pylarify via the right antecubital fossa, image acquisitions of the head, neck, chest, abdomen and pelvis to the level of the mid thigh at 73 minutes post-tracer distribution reveal: The examination was interpreted using the EANM (Alvin et al., Journal of Nuclear Medicine Molecular Imaging 44:1622, 2017) and PROMISE (Pita et al., Journal of Nuclear Medicine 59:469, 2018) interpretive criteria. HEIGHT: 69 inches. WEIGHT: 209 lbs PSMA expression score PROMISE criteria: High (3): SUV ? parotid-salivary gland, intermediate (2): SUV ? liver, low (1): > blood pool, < liver, (0): < blood pool. SUV reference values: Parotid glands: 15.84 Normal liver parenchyma: 11.5 Blood pool: 2.3 FINDINGS: Head/Neck: Symmetric tracer concentration is noted in the bilateral parotid and submandibular glands. Physiologic uptake is noted in the nasal cavity. Meticulous attention paid to the cranial vault demonstrates no evidence of increased radiopharmaceutical concentration. CHEST: There is no evidence of abnormal increased radiopharmaceutical within the context of the bilateral hemithorax pulmonary parenchyma, mediastinal structures and right-left thoracic perihilum. Pertinent chest CT findings are as follows. Atherosclerotic calcification is defined in the thoracic aorta without evidence of dilatation, aneurysm formation. Minimal coronary arterial calcification is observed. Mediastinal and bilateral axillary soft tissue densities are ametabolic. There are no parenchymal densities-nodules defined in the right and left hemithorax with quantitatively significant increased radiopharmaceutical concentration. Abdomen/Pelvis: Facilitated tracer uptake is noted in the lower pelvis associated with the prostate gland to the left and right of the midline. The calculated maximum standard uptake value is 12.93. The PROMISE score is 2. The maximum axial diameter of the most conspicuous abnormality is 13.8 mm. Facilitated radiotracer is defined in the right hemipelvis in two separate locations generating a calculated maximum standard uptake value of 5.78. The PROMISE score is 1. Physiologic tracer uptake is noted in the hepatic and splenic parenchyma, bilateral renal units, urinary bladder, and visualized intestinal tract. Pertinent abdomen and pelvis CT findings are as follows. Colonic diverticulosis is defined without evidence of diverticulitis. Calcified granuloma formation is noted in the splenic parenchyma. There is atherosclerotic calcification defined in the abdominal aorta without evidence of dilatation-aneurysm formation. Pelvic arterial calcification is observed. Right and left inguinal soft tissue densities with fatty hilus are ametabolic. Skeletal: Degenerative changes defined in the cervical, thoracic and lumbar spine demonstrate no evidence of radiopharmaceutical hypermetabolism. PET/PET/CT Tumor Base -Thigh Init IMPRESSION: 1. ABNORMAL EXAMINATION INDICATIVE OF MALIGNANT-VIABLE NEOPLASM. 2. Increased tracer concentration noted within the prostate gland fulfills quantitative criteria for malignant transformation. (Eiitz et al, Journal of Nuclear Medicine 59:469, 2018). 3. Enhanced tracer uptake visualized in two separate locations within the right hemipelvis do not fulfill quantitative criteria for malignant involvement. Electronic Signature Ghassan Woods D.O. Accurate Quantification of SUVs and standardized PROMISE scores for this report are calculated using the exclusive [employer], ([place].S. Patent No. [id number] [id number] [phone] [place] patent [id number] [id number] [id number] ). Standardization and correction of the FDG SUV metric exclusively available with [employer] intellectual property, allow for vendor non-specific objective quantitative sequential FDG PET-CT comparison and otherwise unobtainable optimization of the sensitivity and specificity of the examination. [email or web address] Electronically Signed: Ghassan Woods DO at 8:41 EDT ,
== END | disposition home or self-care (01) ==
PROVIDERS: PCP Family Medicine; Referring Provider Urology; Visit Provider Urology
DX: C61 Malignant neoplasm of prostate (principal); R97.21 Rising PSA following treatment for malignant neoplasm of prostate
CPT/HCPCS: 78815; A9595

== ENCOUNTER 2025-03-18 15:20 | Observation (INO) | payer SELFPAY, OTHER ==
--- NOTE | 2025-03-16 13:11 | PAT.ANESEVAL ---
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 When Was Last Pacemaker Check QUESTION #4 FULL TEXT: You/Your Family Experience fever (hyperthermia) with Anesthesia Last Oral Intake Last Oral intake: Last Oral Intake NPO since Meds taken in AM with sips of water? 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 Female No 03/11/25 15:57 HX of Motion Sickness No 03/11/25 15:57 HX of N/V After Surgery No 03/11/25 15:57 Non-Smoker Yes 03/11/25 15:57 Duration of Surgery greater Yes 03/11/25 15:57 than 60 minutes Number of Risk Factors 2 03/11/25 15:57 PONV Score Moderate Risk 03/11/25 15:57 Respiratory Assessment Respiratory Assessment - bench worker apprentice: Respiratory Tract Infection Hx - bench worker apprentice Hx Respiratory Tract Infection No 03/11/25 15:57 STOP Sleep Apnea STOP Sleep Apnea - bench worker apprentice: STOP Sleep Apnea - bench worker apprentice Hx Hypertension No 03/11/25 15:57 Hx Sleep Apnea No 03/11/25 15:57 CPAP BIPAP Do you snore loudly (louder Yes 03/11/25 15:57 than talking or can be heard Do you often feel tired/ Yes 03/11/25 15:57 fatigued/ sleepy during daytime? Has anyone observed you stop No 03/11/25 15:57 breathing during sleep? STOP Results Positive 03/11/25 15:57 QUESTION #5 FULL TEXT : Do you snore loudly (louder than talking or can be heard through closed doors)? 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 Specify any problems Hx of Preganancy in last 3 N/A 03/11/25 15:57 Months Nurse Filling Out Transfusion DSCHRIBER 03/11/25 15:57 & Questions: Date: 03/11/25 03/11/25 15:57 Time: 15:59 03/11/25 15:57 Patient unable to answer at this time (ie. confused, unrespo /Reproduction History /Reproductive History - bench worker apprentice: /Reproductive Hx- bench worker apprentice Hx Now No 03/11/25 15:57 Gestational Age (in weeks): EDC: Hx Hx Para Hx Section SAB No 03/11/25 15:57 PFSH Medical History (Updated 03/11/25 @ 16:05 by Yohana Hayes) Wears hearing aid Wears glasses Wears dentures Cancer Anxiety Ambulates with cane Prostate disease Bladder disease Restless legs Injury of head and neck Syncope Heartburn Shortness of breath on exertion Former smoker History of pain when walking History of stress test Hx of fracture of leg Home Medications ?Medication ?Instructions ?Recorded ?Last Taken ?Type alprazolam 0.5 mg tablet 0.5 mg PO BID PRN PRN anxiety 03/11/25 Unknown History ascorbic acid (vitamin C) 1,000 mg 1 g PO DAILY 03/11/25 Unknown History tablet (C-1000) finasteride 5 mg tablet 5 mg PO DAILY 03/11/25 Unknown History tamsulosin 0.4 mg capsule 0.4 mg PO BID 03/11/25 Unknown History vitamin E 268 mg (400 unit) capsule 268 mg PO DAILY 03/11/25 Unknown History Allergy/AdvReac Type Severity Reaction Status Date / Time No Known Allergies Allergy Verified 03/11/25 15:54 Surgical History (Updated 03/11/25 @ 16:05 by Yohana Hayes) Hx of colonoscopy History of open reduction and internal fixation (ORIF) procedure History of removal of retained hardware Hx of total knee arthroplasty Social History Smoking Status: Former smoker Audit: Pertinent Findings Pertinent Findings EKG Perinent findings: 03/14/2025. Normal sinus rhythm 66 bpm. LVH. Nonspecific change in ST segments in lateral leads. Recommendation Anesthesia Recommendation Anesthesia recommendation: OPTIMIZED for anesthesia
[2025-03-18] VITALS (10 sets, daily range): BP systolic 126–170; BP diastolic 72–98; PULSE 64–81; RESP 14–18; TEMP 36.2–37.1; O2SAT 92–99; BMI 29.2
--- NOTE | 2025-03-18 10:21 | PRE.ANES_ITS ---
ASA Classification* ASA Classification ASA Classification: 2 Assessment & Plan Anesthesia* Anesthesia Assessment Anesthesia Assessment: Discussed sedation and/or anesthesia options, risks, benefits, and alternatives with patient/parents/legal guardian/POA. Questions invited. The patient/parents/legal guardian/POA seems to understand and agrees to proceed with anesthesia plan. Reviewed the physical assessment, medical history, allergy history and patient home medications list prior to surgery/procedure/anesthetic and documented any changes. Performed airway and anesthesia risk assessments. 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 When Was Last Pacemaker Check QUESTION #4 FULL TEXT: You/Your Family Experience fever (hyperthermia) with Anesthesia Last Oral Intake Last Oral intake: Last Oral Intake NPO since Meds taken in AM with sips of water? 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 Female No 03/11/25 15:57 HX of Motion Sickness No 03/11/25 15:57 HX of N/V After Surgery No 03/11/25 15:57 Non-Smoker Yes 03/11/25 15:57 Duration of Surgery greater Yes 03/11/25 15:57 than 60 minutes Number of Risk Factors 2 03/11/25 15:57 PONV Score Moderate Risk 03/11/25 15:57 Respiratory Assessment Respiratory Assessment - collar turner operator: Respiratory Tract Infection Hx - collar turner operator Hx Respiratory Tract Infection No 03/11/25 15:57 STOP Sleep Apnea STOP Sleep Apnea - collar turner operator: STOP Sleep Apnea - collar turner operator Hx Hypertension No 03/11/25 15:57 Hx Sleep Apnea No 03/11/25 15:57 CPAP BIPAP Do you snore loudly (louder Yes 03/11/25 15:57 than talking or can be heard Do you often feel tired/ Yes 03/11/25 15:57 fatigued/ sleepy during daytime? Has anyone observed you stop No 03/11/25 15:57 breathing during sleep? STOP Results Positive 03/11/25 15:57 QUESTION #5 FULL TEXT : Do you snore loudly (louder than talking or can be heard through closed doors)? 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 Specify any problems Hx of Preganancy in last 3 N/A 03/11/25 15:57 Months Nurse Filling Out Transfusion DSCHRIBER 03/11/25 15:57 & Questions: Date: 03/11/25 03/11/25 15:57 Time: 15:59 03/11/25 15:57 Patient unable to answer at this time (ie. confused, unrespo /Reproduction History /Reproductive History - collar turner operator: /Reproductive Hx- collar turner operator Hx Now No 03/11/25 15:57 Gestational Age (in weeks): EDC: Hx Hx Para Hx Section SAB No 03/11/25 15:57 Active Medications Active Medications: Current Medications Generic Name Dose Route Start Last Admin Trade Name Freq PRN Reason Stop Dose Admin Cefazolin Sodium 2 gm/ Sodium 110 mls @ 150 mls/hr 03/18/25 12:00 Chloride IV 03/18/25 12:43 INTRAOP ONE Lactated Ringer's 1,000 mls @ 15 mls/hr 03/18/25 10:15 IV .Q48H FREDIS PFSH Medical History Wears hearing aid Wears glasses Wears dentures Cancer Anxiety Ambulates with cane Prostate disease Bladder disease Restless legs Injury of head and neck Syncope Heartburn Shortness of breath on exertion Former smoker History of pain when walking History of stress test Hx of fracture of leg Home Medications ?Medication ?Instructions ?Recorded ?Last Taken ?Type alprazolam 0.5 mg tablet 0.5 mg PO BID PRN PRN anxiet y 03/11/25 Unknown History ascorbic acid (vitamin C) 1,000 mg 1 g PO DAILY Unknown History tablet (C-1000) finasteride 5 mg tablet 5 mg PO DAILY 03/11/25 Unkno wn History tamsulosin 0.4 mg capsule 0.4 mg PO BID 03/11/25 Unkno wn History vitamin E 268 mg (400 unit) capsule 268 mg PO DAILY Unknown History Allergy/AdvReac Type Severity Reaction Status Date / Time No Known Allergies Allergy Verified 03/11/25 15:54 Surgical History Hx of colonoscopy History of open reduction and internal fixation (ORIF) procedure History of removal of retained hardware Hx of total knee arthroplasty Social History Smoking Status: Former smoker Review of Systems (Anesthesia) ROS Narrative System reviewed and no additional complaints, except as documented.
[2025-03-18] MEDS: Lactated Ringers 1,000 ML 15 ML IV (10:47)
--- NOTE | 2025-03-18 13:12 | PCM.HP.STD ---
HPI - General General Date of Service: 03/18/25 Chief Complaint: BPH with obstruction HPI Narrative ANASTACIO ENGLAND, is a 84 M who presents for a transurethral resection of the prostate for BPH with obstruction PFSH Medical History Wears hearing aid Wears glasses Wears dentures Cancer Anxiety Ambulates with cane Prostate disease Bladder disease Restless legs Injury of head and neck Syncope Heartburn Shortness of breath on exertion Former smoker History of pain when walking History of stress test Hx of fracture of leg Home Medications ?Medication ?Instructions ?Recorded ?Last Taken ?Type alprazolam 0.5 mg tablet 0.5 mg PO BID PRN PRN anxiety 03/11/25 03/17/25 History ascorbic acid (vitamin C) 1,000 mg 1 g PO DAILY 03/11/25 03/17/25 History tablet (C-1000) finasteride 5 mg tablet 5 mg PO DAILY 03/11/25 03/17/25 History tamsulosin 0.4 mg capsule 0.4 mg PO BID 03/11/25 03/17/25 History vitamin E 268 mg (400 unit) capsule 268 mg PO DAILY 03/11/25 03/17/25 History Allergy/AdvReac Type Severity Reaction Status Date / Time No Known Allergies Allergy Verified 03/18/25 10:37 Surgical History Hx of colonoscopy History of open reduction and internal fixation (ORIF) procedure History of removal of retained hardware Hx of total knee arthroplasty Social History Smoking Status: Former smoker Vital Signs Vital Signs Vital Signs: 03/18/25 10:39 03/18/25 10:39 Temperature 97.5 F L Temperature Source Temporal Pulse Rate 73 Respiratory Rate 16 Respiratory Pattern Normal Blood Pressure 157/87 H Blood Pressure Mean 110 Blood Pressure Source Monitor Blood Pressure Position Semi-Fowlers Blood Pressure Location Right Arm Pulse Ox 98 Oxygen Delivery Method Room Air Weight Weight: 90 kg Body Mass Index (BMI) 29.2
--- NOTE | 2025-03-18 13:38 | DCINST_ITS ---
Discharge Instructions Diet Discharge Diet: No restrictions DC O2, CPAP, BIPAP needs Home O2 Discharge instructions: No Dressing / Incision Discharge Activity: Return to Normal Activity and May Not Drive (while taking narcotic pain medications.) Dressing / Incision Call your doctor if you observe: Fever of 101 or Higher Follow Up Care Please Follow Up With: Drake Marvin MD When: Call [phone] for an appointment Test Results: Test results from this visit will be discussed in further detail at your follow- up appointment, if applicable. Discharge Plan Admission Primary Reason for Your Visit: gabino Attending Provider: Drake Marvin Primary Care Provider: Kleber Morales Instructions Patient Instructions: GABINO Print Language: Mohawk Discharge Orders/Prescriptions Prescriptions: Continued alprazolam 0.5 mg tablet 0.5 mg PO BID PRN PRN (Reason: anxiety) vitamin E 268 mg (400 unit) capsule 268 mg PO DAILY ascorbic acid (vitamin C) [C-1000] 1,000 mg tablet 1 g PO DAILY Discontinued tamsulosin 0.4 mg capsule 0.4 mg PO BID finasteride 5 mg tablet 5 mg PO DAILY Referrals / Follow Up: Drake Marvin MD [Med Staff - Active Staff] - Kleber Morales MD [Primary Care Provider] - Disposition Disposition (needs filled in before D/C Order can be placed): Home, Self Care
[2025-03-18] MEDS: Cefazolin 2 GM in 0.9% Normal Saline (100mL Bag) 100 ML IV (13:39)
--- NOTE | 2025-03-18 14:20 | OP.PCM_ITS ---
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 Surgery/Procedure Performed: Cystoscopy dilation of meatal stenosis, transu rethral resection of the prostate academic affairs coordinator: No Type of Anesthesia: General RN Documented Start/Stop Times: Operation Date: 03/18/25 12:00 Case Time Into Pre-Op 03/18/25 10:12 Out of Pre-Op 03/18/25 13:35 Anesthesia Start 03/18/25 13:39 Into Room 03/18/25 13:39 Procedure Start 03/18/25 13:49 Procedure End 03/18/25 14:18 Procedure Start Time: 13:49 Procedure Stop Time: 14:18 Select all DRAINS/GRAFTS/IMPLANTS that apply: Drains Drain details: 20 Albanian Edwards Estimated Blood Loss: Minimal Specimen collected: Yes Description of specimen(s) removed: Prostate tissue Description of surgery: Patient taken back to the operating room after induction of anesthesia he was pl aced in dorsolithotomy position. The penis and testicles were prepped and draped in usual fashion he did have a uncircumcised penis with tight phimosis of the foreskin but he did not want a circumcision he did have a tight meatus after draping in draped and prepped prepping the penis in sterile fashion I then used serial Mickey sounds and dilated the meatal stenosis with sounds from 14 Albanian up to 26 Albanian this was dilated easily I then went in with a 24 Albanian noncontinuous flow Olympus bipolar resectoscope and started working on the prostate, I first identified the landmarks left to right ureteral orifice were identified bladder neck was identified the verumontanum was identified all the landmarks were normal I then started the resection of the bladder neck working my way back to the verumontanum I then resected the right lobe of the prostate resect the left lobe of the prostate very carefully resected the anterior tissue and then finally resected the apical tissue very carefully sphincter was intact and removed the verumontanum was intact both the left or your right ureteral orifice were intact I then cauterized obtain hemostasis Edwards catheter was placed in the bladder on continuous irrigation anesthetic was reversed and taken back to PACU for continuous irrigation. Surgical Findings: enlarger prostate, meatal stenosis Complications Complications: No Admit VTE Documentation VTE Present on Admission: No VTE Mechan Device Prophylaxis: SCD's VTE Pharm Prophylaxis ordered?: No
--- NOTE | 2025-03-18 14:31 | PCM.POST.ANE ---
Anesthesia: Postop Eval I Current Vital Signs Temperature: 97.3 F Pulse Rate: 81 Blood Pressure: 170/80 Respiratory Rate: 16 Pulse Ox: 98 Assessment Airway patent: Yes Spontaneous unlabored respirations: Yes nausea: No Vomiting: No Anesthesia Complication: No Fluid Hydration Crystalloid volume administer (ml): 800 Total IV fluid infused: 800 Progress Note Anesthesia document: Postop Eval 1 completed: Yes
[2025-03-18] MEDS: Ketorolac 15 MG/ML Vial IV ×2 (15:27→21:02)
--- NOTE | 2025-03-18 16:04 | PROS_PTH ---
PATIENT: ANASTACIO ENGLAND LOC: MS3 U#:[id number] AGE/SX: 84/M ROOM: [facility] [place]03/18/[address]: Dr. Drake Marvin MD : 1940 BED: 1 DIS: 03/19/2025 SPEC #: [id number] RECD: 03/18/25 16:04 STATUS: JOSIANE PEACE #: [id number] SUPRIYA: 03/18/25 16:[address]: Drake Marvin DEPT: SURGICAL PATHOLOGY RECD BY: Stefani De Santiago ENTERED: 03/19/25 07:35 SP TYPE: TURP OTHR DR: Dr. Kleber Morales MD Tissues: Prostate, NOS Procedures: Surgery Specimen Level IV HEADER OPERATION: Transurethral resection, prostate PRE-OP DIAGNOSIS: Benign prostatic hyperplasia with obstruction TISSUE SUBMITTED: A- Prostate tissue MICROSCOPIC DIAGNOSIS A. 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 * Note: Cautery artifact distorts some of the tumor. A higher [place] grade (e+3=7) cannot be ruled out. MICROSCOPIC DESCRIPTION Slides are reviewed. GROSS DESCRIPTION A. Received in formalin in a container labeled with the patient's name, date of , and prostate tissue are multiple bermudez-pink, irregular, and rubbery fragments of soft tissue weighing 6.2 g together and measuring 6.2 x 5.5 x 1.4 cm in aggregate. Submitted in toto in A1-7. [facility] 03-19-2025 CPT:81322
[2025-03-18] MEDS: 0.9% Normal Saline (1000mL) 1,000 ML 125 ML IV (16:16)
--- NOTE | 2025-03-18 16:22 | POSTOPAN2_ITS ---
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
--- NOTE | 2025-03-18 16:22 | PCM.POSTANE2 ---
Anesthesia Postop Eval I Sum Postop Eval Completion status Anesthesia document: Postop Eval 1 completed: Yes Anesthesia Postop Eval I Summary Anesthesia Postop Eval I Summary: Anesthesia Postop Eval I: Assessment Summary Airway patent Yes 03/18/25 14:31 [email or web address] Spontaneous unlabored Yes 03/18/25 14:31 [email or web address] respirations Mental status nausea No 03/18/25 14:31 [email or web address] Vomiting No 03/18/25 14:31 [email or web address] Anesthesia Postop Eval I: Fluid Summary Crystalloid volume administer 800 03/18/25 14:31 [email or web address] (ml) Colloids volume administered ( ml) Blood Product volume administered (ml) Total IV fluid infused 800 03/18/25 14:31 [email or web address] Anesthesia Postop Eval I: Summary Notes Anesthesia Complication No 03/18/25 14:31 [email or web address] Anesthesia Complication Comment: Post-operative progress note Anesthesia: Postop Eval II Evaluation Mental status: Awake Pain Level: 1 nausea: No Vomiting: No
[2025-03-18] MEDS: Ciprofloxacin 400 MG/200 ML BAG 200 MG IV (21:01)
[2025-03-18] MEDS: 0.9% Saline Lock 10 ML Syringe IV (21:03)
[2025-03-18] MEDS: Docusate Sodium 100 MG Capsule 200 MG PO (21:03)
[2025-03-19] MEDS: 0.9% Normal Saline (1000mL) 1,000 ML 125 ML IV ×2 (00:50→09:02)
[2025-03-19 00:54] VITALS: BP 153/92; PULSE 71; RESP 16; TEMP 36.8; O2SAT 96
[2025-03-19] MEDS: 0.9% Saline Lock 10 ML Syringe IV ×3 (03:19→15:25)
[2025-03-19] MEDS: Ketorolac 15 MG/ML Vial IV ×3 (03:19→15:25)
[2025-03-19 05:44] LABS: Absolute Neutrophil Count 10.2 X10^3/uL (2.0-7.7); Basophil# 0.01 X10^3/uL; Basophil% 0.1 % (0-1); Hematocrit 36.7 % (40-54); Hemoglobin 12.5 g/dL (13.0-16.5); Lymphocyte % 14.1 % (19-41); Mean Corp Hgb Conc 34.1 g/dL (32-36); Mean Corpuscular Hgb 31.4 pg (27.0-32.0); Mean Corpuscular Volume 92.2 fL (80-94); Mean Platelet Vol. 10.3 fl (6.2-12.0); Monocyte# 0.73 X10^3/uL; Monocyte% 5.7 % (0-10); NRBC Flagged by Analyzer 0 % (0-5); Neutrophil # 10.15 X10^3/uL (2.7-7.7); Neutrophil % 79.8 % (47-70); Platelet Count 168 K/mm3 (150-450); RBC Distribution Width SD 44.2 fl (35.1-43.9); Red Blood Count 3.98 M/mm3 (4.6-6.2); White Blood Count 12.7 K/mm3 (4.4-11.0)
[2025-03-19 05:51] VITALS: BP 150/86; PULSE 57; RESP 16; TEMP 36.8; O2SAT 96
[2025-03-19 06:20] LABS: Anion Gap 10 (5-15); BUN 26 mg/dL (4-19); BUN/Creat Ratio 14.2 RATIO (10-20); Calcium,Total 8.7 mg/dL (7.6-11.0); Carbon Dioxide 20.4 mmol/L (21.0-32.0); Chloride 107 mmol/L (98-108); Creatinine, Serum 1.81 mg/dL (0.70-1.20); EST Glomerular Filtration Rate 37 (>60); Glucose 111 mg/dL (70-99); Potassium 4.5 mmol/L (3.3-5.1); Sodium Level 138 mmol/L (133-145)
--- NOTE | 2025-03-19 06:51 | DS.PCM_ITS ---
Providers Date of Admission: 03/18/25 Date of Discharge: 03/19/25 Primary Care Physician: Dr. Kleber Morales MD Reason For Visit: Cysto,TUR,Prostate,[employer] Medications at Discharge Home Medications alprazolam 0.5 mg tablet 0.5 mg PO BID PRN PRN anxiety 03/11/25 ascorbic acid (vitamin C) 1,000 mg tablet (C-1000) 1 g PO DAILY 03/11/25 vitamin E 268 mg (400 unit) capsule 268 mg PO DAILY 03/11/25 Hospital Course Operations TURP Summary of Care Provided Minutes Spent on Discharge: 10 Hospital Course: Status post TURP patient go home after he urinates Weight / BMI Weight Weight: 90 kg Body Mass Index (BMI) 29.2 ABG / Lab / Microbiology Data 03/19/25 04:55 03/19/25 04:55 Laboratory: Laboratory Results - last 24 hr 03/19/25 04:55: WBC 12.7 H, RBC 3.98 L, Hgb 12.5 L, Hct 36.7 L, MCV 92.2, MCH 31.4, MCHC 34.1, RDW Std Deviation 44.2 H, RDW Coeff of Vera 13.0, Plt Count 168, MPV 10.3, Immature Gran % (Auto) 0.300, Neut % (Auto) 79.8 H, Lymph % (Auto) 14.1 L, [place] % (Auto) 5.7, Eos % (Auto) 0.0, Baso % (Auto) 0.1, Absolute Neuts (auto) 10.2 H, Absolute Lymphs (auto) 1.80, Nucleated RBC % 0, Sodium 138, Potassium 4.5, Chloride 107, Carbon Dioxide 20.4 L, Anion Gap 10, BUN 26 H, C reatinine 1.81 H, Estim Creat Clear Calc 34.30 L, Est GFR (MDRD) Non-Af 37 L, BUN/Creatinine Ratio 14.2, Glucose 111 H, Calcium 8.7 D/C Instructions Discharge Diet: No restrictions Call your doctor if you observe: Fever of 101 or Higher DC O2, CPAP, BIPAP Needs Home O2 Discharge instructions: No Please Follow Up With: Drake Marvin MD When: Call [phone] for an appointment Meaningful Use Info Meaningful Use Meaningful Use Diagnoses (Choose all that apply): None applicable Ischemic Stroke Statin Dosing Therapy Reference: STATIN DOSE THERAPY REFERENCE: * Patients > 75 years receive moderate or high dose statin therapy. * Patients 75 years or YOUNGER should receive HIGH intensity statin dose unless contraindicated. You will be required to document reason for non-treatment if statin daily dose does not meet guidelines. HIGH DOSE STATIN THERAPY DAILY Atorvastatin > than or = to 40 mg Rosuvastatin > than or = to 20 mg Amlodipine + Atorvastatin > than or = to 2.5/40 mg Ezetimibe + Simvastatin 10/80 mg Simvastatin 80mg Discharge Plan Admission Admit Date/Time: 03/18/25 15:20 Primary Reason for Your Visit: gabino Attending Provider: Drake Marvin Primary Care Provider: Kleber Morales Instructions Patient Instructions: GABINO Discharge Orders/Prescriptions Prescriptions: Continued alprazolam 0.5 mg tablet 0.5 mg PO BID PRN PRN (Reason: anxiety) vitamin E 268 mg (400 unit) capsule 268 mg PO DAILY ascorbic acid (vitamin C) [C-1000] 1,000 mg tablet 1 g PO DAILY Discontinued tamsulosin 0.4 mg capsule 0.4 mg PO BID finasteride 5 mg tablet 5 mg PO DAILY Referrals / Follow Up: Drake Marvin MD [Med Staff - Active Staff] - Kleber Morales MD [Primary Care Provider] - Disposition Discharge Orders: Discharge Patient (Routine); Ordered 03/19/25 Ordered By: Dr. Drake Mavrin
[2025-03-19 07:53] VITALS: BP 145/71; PULSE 59; RESP 18; TEMP 36.7; O2SAT 95
[2025-03-19] MEDS: Docusate Sodium 100 MG Capsule 200 MG PO (10:04)
[2025-03-19] MEDS: Ciprofloxacin 400 MG/200 ML BAG 200 MG IV (10:04)
[2025-03-19 11:49] VITALS: BP 146/70; PULSE 68; RESP 18; TEMP 36.4; O2SAT 96
[2025-03-19 15:58] VITALS: BP 171/63; PULSE 64; RESP 18; TEMP 36.5; O2SAT 97
== END 2025-03-19 16:10 | disposition home or self-care (01) ==
LOC: SDC 15:34 → MS3 15:34
PROVIDERS: Admitting Provider Urology; PCP Family Medicine; Referring Provider Urology; Visit Provider Urology
PROC: (CPT 52601; principal; 2025-03-18 11:50)
DX: C61 Malignant neoplasm of prostate (principal); N40.1 Benign prostatic hyperplasia with lower urinary tract symptoms; N13.8 Other obstructive and reflux uropathy; R35.0 Frequency of micturition; R35.1 Nocturia; R39.12 Poor urinary stream; N47.1 Phimosis; R97.20 Elevated prostate specific antigen [PSA]; Z87.891 Personal history of nicotine dependence
CPT/HCPCS: 52601; 00914; 36415; 80048; 85025; 88305; 94668; 96361; 96365; 96366; 96375; 96376; 99221; A4216; G0378; J0744; J2405